=== PATIENT | male | born 1980 | race Caucasian/White ===

== ENCOUNTER 2016-08-27 11:08 | Emergency (ER) | payer OTHER ==
[~2016-08-27 11:08] MED LIST: AUGMENTIN 875-1 EACH PO; CYCLOBENZAPRINE10 MG PO; NAPROXEN500 MG PO; NORCO 5-325 TA1 EACH PO
== END 2016-08-27 11:25 | disposition home or self-care (01) ==
LOC: ED 11:08
DX: Z00.8 Encounter for other general examination (principal)

== ENCOUNTER 2017-06-22 13:23 | Emergency (ER) | payer OTHER ==
[~2017-06-22] VITALS: Ht 177.8 cm; Wt 65.8 kg
[2017-06-22] MEDS ORDERED: BACTRIM DS TAB1 EACH PO (17:09)
[2017-06-22] MEDS ORDERED: NORCO 5-325 TA1 EACH PO (17:09)
== END 2017-06-22 17:22 | disposition home or self-care (01) ==
LOC: ED 13:23
DX: K57.32 Diverticulitis of large intestine without perforation or abscess without bleeding (principal); F17.200 Nicotine dependence, unspecified, uncomplicated
CPT/HCPCS: 74177; 80053; 81001; 82150; 83690; 85025; 96361; 96374; 96375; 99283; J1885; J2405; J7030; Q9967

== ENCOUNTER 2018-06-12 12:41 | Emergency (ER) | payer OTHER ==
[~2018-06-12] VITALS: Ht 177.8 cm; Wt 99.8 kg
[~2018-06-12 12:41] MED LIST changes: +BACTRIM DS TAB1 EACH PO
== END 2018-06-12 15:57 | disposition home or self-care (01) ==
LOC: ED 12:41
DX: K59.00 Constipation, unspecified (principal); K64.8 Other hemorrhoids; F17.200 Nicotine dependence, unspecified, uncomplicated
CPT/HCPCS: 74018; 80053; 83690; 85025; 96374; 99285-25; 99406; J1885

== ENCOUNTER 2020-01-27 17:09 | Emergency (ER) | payer OTHER ==
[~2020-01-27] VITALS: Ht 177.8 cm; Wt 83.9 kg
[2020-01-27] MEDS ORDERED: SILVADENE20 GM TOP ×2 (20:31→21:40)
[2020-01-27] MEDS ORDERED: BACITRACIN3.5 GM OD (20:34)
== END 2020-01-27 21:55 | disposition home or self-care (01) ==
LOC: ED 17:09
DX: T22.011A Burn of unspecified degree of right forearm, initial encounter (principal); T25.031A Burn of unspecified degree of right toe(s) (nail), initial encounter; X10.2XXA Contact with fats and cooking oils, initial encounter; F17.200 Nicotine dependence, unspecified, uncomplicated
CPT/HCPCS: 16000; 99283-25

== ENCOUNTER 2021-07-10 11:17 | Emergency (ER) | payer OTHER ==
[~2021-07-10] VITALS: Ht 177.8 cm; Wt 108.9 kg
[~2021-07-10 11:17] MED LIST changes: +BACITRACIN3.5 GM OD; +SILVADENE20 GM TOP
== END 2021-07-10 11:55 | disposition home or self-care (01) ==
LOC: ED 11:17
DX: S61.311A Laceration without foreign body of left index finger with damage to nail, initial encounter (principal); W26.8XXA Contact with other sharp object(s), not elsewhere classified, initial encounter; F17.200 Nicotine dependence, unspecified, uncomplicated
CPT/HCPCS: 99282

== ENCOUNTER 2025-02-25 08:26 | Emergency (ER) | payer OTHER ==
[~2025-02-25] VITALS: Ht 177.8 cm; Wt 103.1 kg
[2025-02-25 08:57] LABS: BASOPHILS 0.5 % (0.2-1.2); EOSINOPHILS 0.1 % (0.8-7.0); LYMPHOCYTES 13.0 % (21.8-53.1); MCH 31.3 PG (25.7-32.2); MCHC 34.8 g/dL (32.3-36.5); MCV 90.1 fL (79.0-92.2); MONOCYTES 7.0 % (5.3-12.2); NEUTROPHILS 78.9 % (34.0-67.9); RBC 5.17 M/uL (4.63-6.08)
[2025-02-25] MEDS ORDERED: KETOROLAC TROMETHAMINE 30 MG/ML VIAL IV ONE (09:00)
[2025-02-25 09:25] LABS: ALT (SGPT) 52.0 U/L (14-59); AST (SGOT) 16.0 U/L (15-37); GLOMERULAR FILTRATION RATE,EST 104.0 mL/min (>60); PROTEIN, TOTAL 7.8 g/dL (6.4-8.2); UREA NITROGEN 10.0 mg/dL (7-18)
[2025-02-25] MEDS ORDERED: IBU600 MG PO (09:52)
[2025-02-25] MEDS ORDERED: HYDROCODON-ACE1 EA10 PO (09:52)
[2025-02-25 10:04] VITALS: BP 137/88
--- NOTE | 2025-02-28 19:10 | EKG ---
[facility] [address] [facility] [place] [address] Signed Normal sinus rhythm Normal ECG When compared with ECG of 30-JUL-2022 01:53, No significant change was found Confirmed by Angela Chen MD () on 02/28/2025 7:10:11 PM Electronically Signed By: ANGELA CHEN MD 02/28/251909 PATIENT NAME: BENNY SUTTON ENDY Electrocardiogram DATE OF : 82 PHYSICIAN: ANGELA CHEN MD REPORT #: [id number] REPORT IS CONFIDENTIAL AND NOT TO BE RELEASED WITHOUT AUTHORIZATION
== END 2025-02-25 10:04 | disposition home or self-care (01) ==
LOC: ED 08:26
PROVIDERS: Emergency Medicine
DX: R07.89 Other chest pain (principal); F17.200 Nicotine dependence, unspecified, uncomplicated; Z59.89 Other problems related to housing and economic circumstances
CPT/HCPCS: 36415; 71045; 80053; 84484; 85025; 85060; 93005; 93010; 96374; 99285-25; J1885